=== PATIENT | male | born 1975 | race African-American/Black ===

== ENCOUNTER 2016-12-19 14:18 | Emergency (ER) | payer OTHER, BC ==
[~2016-12-19] VITALS: Ht 180.3 cm; Wt 136.1 kg
[2016-12-19 14:34] VITALS: BP 154/83
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
== END 2016-12-19 15:22 | disposition home or self-care (01) ==
LOC: ER 14:18
DX: S90.02XA Contusion of left ankle, initial encounter (principal); G89.29 Other chronic pain; F17.210 Nicotine dependence, cigarettes, uncomplicated; W22.8XXA Striking against or struck by other objects, initial encounter; Y93.01 Activity, walking, marching and hiking; Y92.481 Parking lot as the place of occurrence of the external cause; Y99.8 Other external cause status
CPT/HCPCS: 73610; 99284

== ENCOUNTER → 2016-12-30 | Outpatient (CLI) | payer BC ==
[2016-12-19 14:34] VITALS: BP 154/83
[~2016-12-30] MED LIST: LOSA25TA4 PO; MELO-150 PO; WARF5TAB PO
[2016-12-30 09:25] LABS: ALBUMIN 3.8 g/dL (3.4-5.0); GFR 99.6; POTASSIUM 3.7 mmol/L (3.5-5.1)
[2016-12-30 09:29] LABS: BASO # 0.1 x10^3/uL (0.0-0.2); BASO % 1 % (0-3); EOS % 5 % (0-3); HEMATOCRIT 41.3 % (39.0-53.0); HEMOGLOBIN 13.3 g/dL (13.0-17.5); LYMPH # 3.2 x10^3/uL (1.0-4.8); LYMPH % 36 % (24-48); MEAN CORPUSCULAR HEMOGLOBIN 24 pg (25-35); MEAN CORPUSCULAR HGB CONC 32 g/dL (31-37); MEAN CORPUSCULAR VOLUME 75 fL (79-100); MONO % 8 % (0-9); NEUT % 51 % (31-73); PLATELET COUNT 160 x10^3/uL (140-400); RED CELL DISTRIBUTION WIDTH 13.9 % (11.5-14.5); WHITE BLOOD COUNT 8.9 x10^3/uL (4.0-11.0)
[2016-12-30 09:36] LABS: INR 1.1 (0.8-1.1); PROTHROMBIN TIME PATIENT 13.2 SEC (11.7-14.0)
--- NOTE | 2016-12-30 12:45 | RAD ---
Indication: Presurgical evaluation, obesity. Technique: Two-view chest radiograph was obtained. No comparison is available. Findings: The lungs are clear. The cardiopulmonary silhouette is within normal limits. There is no pleural effusion. There are minimal degenerative changes in the spine. Impression: No acute thoracic findings.
--- NOTE | 2016-12-30 13:42 | EKG ---
[facility] [address] [place] [address] Test Date: 2016-12-30 Test Time: 11:57:24 Pat Name: JOANA FISH Department: Room: Gender: M Professional Caster: : 1975 Requested By: MADELEINE HEADLEY Order Number: [id number] Reading MD: Birdie Banegas Measurements Intervals Vernon Rate: 82 P: 45 NM: 170 QRS: 45 QRSD: 94 T: 28 QT: 346 QTc: 407 Interpretive Statements SINUS RHYTHM NO SPECIFIC ECG ABNORMALITIES RI6.01 No previous ECG available for comparison Electronically Signed On 01-01-2017 10:56:26 CDT by Birdie Banegas
[2016-12-30 19:44] LABS: BILIRUBIN,URINE SMALL (NEG); GLUCOSE,URINE NEGATIVE (NEG); NITRITE,URINE NEGATIVE (NEG); PH,URINE 6.5; PROTEIN,URINE NEGATIVE (NEG-TRACE)
[2016-12-30 19:58] LABS: BACTERIA,URINE 0 /HPF (0-FEW); SQUAMOUS EPITHELIAL CELL,UR MOD /LPF
== END | disposition home or self-care (01) ==
LOC: SURGPAT 14:33
PROVIDERS: ATTEND Orthopaedic Surgery Sports Medicine
DX: Z01.818 Encounter for other preprocedural examination (principal)
CPT/HCPCS: 36415; 71020; 80048; 81001; 82040; 85027; 85610; 85651; 85730; 87086; 87641; 93005

== ENCOUNTER 2017-01-06 08:12 | Inpatient (IN) | payer BC ==
[2017-01-06] VITALS (10 sets, daily range): BP systolic 145–163; BP diastolic 80–95
[~2017-01-06] VITALS: Ht 177.8 cm; Wt 136.1 kg
[~2017-01-06 08:12] MED LIST changes: +CEFAZOLIN 2GM PREMIX 50 ML IV PRN; +FENTANYL PF 100 MCG/2 ML VIAL. IV PRN; +HYDROCODONE/APAP 7.5/325MG TABLET. PO PRN; +HYDROMORPHONE 2 MG/ML VIAL. IV PRN; +IV RINGERS,LACTATED 1000ML 1,000 ML IV SCH; +LIDOCAINE 1% 1 ML SYRINGE. ID PRN; -LOSA25TA4 PO; -MELO-150 PO; +MELOXICAM 7.5 MG TABLET PO PRN; +MORPHINE SULFATE 5 MG, KETOROLAC TROMETHAMINE 30 MG, ROPIVacaine 0.5% PF 60 ML, EPINEPH... INT ART ONE; +ONDANSETRON PF 4 MG/2 ML VIAL. IV PRN; +PROCHLORPERAZINE 10 MG/2 ML VIAL. IV PRN; +TRANEXAMIC ACID 1,000 MG in IV NS 50ML -- 1ST BAG INJ ONE; +TRANEXAMIC ACID 1,000 MG in IV NS 50ML -- 2ND BAG INJ ONE; -WARF5TAB PO
[2017-01-06] MEDS ORDERED: LIDOCAINE 2% 100 MG/5 ML DISP.SYRIN. ONE (08:31)
[2017-01-06] MEDS ORDERED: FAMOTIDINE 20 MG/2 ML VIAL ONE (08:31)
[2017-01-06] MEDS ORDERED: PROPOFOL 20 ML IV ONE (08:31)
[2017-01-06] MEDS ORDERED: ONDANSETRON PF 4 MG/2 ML VIAL. ONE (08:31)
[2017-01-06] MEDS ORDERED: DEXAMETHASONE SOD PHOS 20 MG/5 ML VIAL. ONE (08:31)
[2017-01-06] MEDS ORDERED: FENTANYL PF 100 MCG/2 ML VIAL. ONE (08:32)
[2017-01-06] MEDS ORDERED: ROCURONIUM 50 MG/5 ML VIAL. ONE ×2 (08:32→08:33)
[2017-01-06] MEDS ORDERED: SUCCINYLCHOLINE 200 MG/10 ML VIAL. ONE (08:33)
[2017-01-06] MEDS ORDERED: WARF5TAB PO (08:40)
[2017-01-06] MEDS ORDERED: MELO-150 PO (08:40)
[2017-01-06] MEDS ORDERED: LOSA25TA4 PO (08:42)
[2017-01-06 09:25] LABS: INR 1.1 (0.8-1.1); PROTHROMBIN TIME PATIENT 13.2 SEC (11.7-14.0)
--- NOTE | 2017-01-06 09:39 | PDOC ---
BRIEF OPERATIVE NOTE Date: Jan 06, 2017 Pre-Op Diagnosis R hip AVN Post-Op Diagnosis same Procedure Performed R BRANDON Surgeon Jas Glass Cleaner Eliel Anesthesiologist [place]ap[place] Anesthesia Type: General Blood Loss per Op Note Complications none MADELEINE HEADLEY II, MD Jan 06, 2017 09:39
[2017-01-06] MEDS ORDERED: FENTANYL PF 100 MCG/2 ML VIAL. IV PRN ×2 (09:45)
[2017-01-06] MEDS ORDERED: OXYCODONE/APAP 5/325 TABLET. PO PRN (09:45)
[2017-01-06] MEDS ORDERED: ACETAMINOPHEN 325 MG TABLET. PO PRN (09:45)
[2017-01-06] MEDS ORDERED: MORPHINE SULFATE 10 MG/ML VIAL. IV PRN (09:45)
[2017-01-06] MEDS ORDERED: MORPHINE SULFATE 4 MG/ML DISP.SYRIN. IV PRN ×2 (09:45)
[2017-01-06] MEDS ORDERED: 0.9 % SODIUM CHLORIDE 10 ML DISP.SYRIN. IV PRN (09:45)
[2017-01-06] MEDS ORDERED: CALCIUM CARBONATE 500 MG TAB.CHEW PO PRN (09:45)
[2017-01-06] MEDS ORDERED: METOCLOPRAMIDE HCL 10 MG/2 ML VIAL. IV PRN (09:45)
[2017-01-06] MEDS ORDERED: DEXTROSE 50% 25 GM / 50ML DISP.SYRIN. IV PRN (09:45)
[2017-01-06] MEDS ORDERED: DIPHENHYDRAMINE 50 MG/ML VIAL IV PRN (09:45)
[2017-01-06] MEDS ORDERED: ZOLPIDEM 5 MG TABLET. PO PRN (09:45)
[2017-01-06] MEDS ORDERED: PROCHLORPERAZINE 10 MG/2 ML VIAL. IV PRN (09:45)
[2017-01-06] MEDS ORDERED: TRAMADOL 50 MG TABLET. PO PRN ×2 (09:45)
[2017-01-06] MEDS ORDERED: MORPHINE SULFATE 2 MG/ML DISP.SYRIN. IV PRN (09:45)
[2017-01-06] MEDS ORDERED: PROCHLORPERAZINE 5 MG TABLET. PO PRN (09:45)
[2017-01-06] MEDS ORDERED: CEFAZOLIN 1GM IVPB FOR OMNI 50 ML IV ONE (11:07)
[2017-01-06] MEDS ORDERED: 0.9 % SODIUM CHLORIDE 50 ML VIAL. IJ ONE (11:08)
[2017-01-06] MEDS ORDERED: DESFLURANE > 120 MINUTES IH ONE (13:32)
[2017-01-06] MEDS ORDERED: NEOSTIGMINE METHYLSULFATE 5 MG/5 ML SYRINGE. ONE (13:33)
[2017-01-06] MEDS ORDERED: KETOROLAC 60 MG/2 ML SYRINGE FOR OR. ONE (13:33)
[2017-01-06] MEDS ORDERED: GLYCOPYRROLATE 1 MG/5 ML VIAL. ONE (13:33)
[2017-01-06] MEDS: FENTANYL PF 100 MCG/2 ML VIAL. IV PRN ×4 (13:37→14:11)
[2017-01-06] MEDS: MORPHINE SULFATE 2 MG/ML DISP.SYRIN. IV PRN ×4 (13:41→14:44)
[2017-01-06] MEDS ORDERED: ACETAMINOPHEN INTRAVENOUS 100 ML IV ONE (14:14)
--- NOTE | 2017-01-06 14:23 | RAD ---
Portable pelvis, 01/06/2017: History: Postop evaluation A right total hip prosthesis is now in place. There are underlying degenerative cysts in the subchondral bone along the superior aspect of the right acetabulum. The left hip joint is fairly well preserved. There is no evidence of a retained surgical instrument, needle or radiopaque sponge on these images.
[2017-01-06] MEDS ORDERED: ACETAMINOPHEN INTRAVENOUS 100 ML IV PRN (14:30)
[2017-01-06] MEDS ORDERED: WARFARIN 7.5 MG TABLET. PO ONE (16:00)
[2017-01-06] MEDS: FERROUS SULFATE 325 MG TABLET PO SCH (17:00)
[2017-01-06] MEDS: CEFAZOLIN SODIUM 3 GM in IV NORMAL SALINE 100ML 100 ML IV SCH ×2 (17:30→22:38)
[2017-01-06] MEDS: LOSARTAN POTASSIUM 25 MG TABLET. PO SCH (19:18)
[2017-01-06] MEDS: IV DEXTROSE 5 %-0.45 % NACL 1,000 ML IV SCH ×2 (19:34→21:03)
[2017-01-06] MEDS: CELECOXIB 200 MG CAPSULE PO SCH (21:01)
[2017-01-06] MEDS: HYDROCODONE/APAP 7.5/325MG TABLET. PO PRN (21:02)
[2017-01-07 02:03] VITALS: BP 140/80
[2017-01-07] MEDS: HYDROCODONE/APAP 7.5/325MG TABLET. PO PRN (02:41)
[2017-01-07 02:46] VITALS: BP 137/72
[2017-01-07] MEDS: CEFAZOLIN SODIUM 3 GM in IV NORMAL SALINE 100ML 100 ML IV SCH (05:06)
[2017-01-07] MEDS: IV DEXTROSE 5 %-0.45 % NACL 1,000 ML IV SCH ×2 (05:34→11:52)
[2017-01-07 05:40] LABS: HEMATOCRIT 34.1 % (39.0-53.0); HEMOGLOBIN 10.8 g/dL (13.0-17.5)
[2017-01-07] MEDS ORDERED: MAGNESIUM HYDROXIDE 2,400 MG/30 ML ORAL.SUSP. PO PRN (06:00)
[2017-01-07 06:11] VITALS: BP 141/77
[2017-01-07 06:13] LABS: INR 1.1 (0.8-1.1); PROTHROMBIN TIME PATIENT 13.7 SEC (11.7-14.0)
--- NOTE | 2017-01-07 06:37 | OP ---
DATE OF SURGERY: 01/06/2017 SURGEON: Gorge Headley MD ACT ENGLISH TUTOR: Karma Julian. PREOPERATIVE DIAGNOSIS: Advanced right hip degenerative joint disease. POSTOPERATIVE DIAGNOSIS: Advanced right hip degenerative joint disease. PROCEDURE PERFORMED: Right total hip arthroplasty. COMPLICATIONS: None. BLOOD LOSS: 200 mL COMPONENTS INSERTED: 1. Mcconnell and Nephew size 4 standard offset Anthology stem. 2. A 40 mm Oxinium femoral head. 3. A +0 modular head sleeve. 4. A 56 mm outer diameter R3 acetabular shell. REASON FOR PROCEDURE: The patient is a very pleasant 41-year-old gentleman who has suffered from right hip and groin pain for many years. This pain has been progressive to the point that it was interfering with his ability to work and ambulate as far as he needs to. Clinical and radiographic workups were consistent with the above diagnosis and after failure of conservative therapies and good initial response to an intra-articular steroid injection, he elected to proceed with surgery. DESCRIPTION OF PROCEDURE: The patient was greeted in the preoperative area by myself. Correct extremity was marked and verified. He was transferred supine to the OR table and had successful induction of general anesthesia. He was then laid in the lateral decubitus position with the right side up and an axillary roll. All down pressure points were padded. He was secured to the bed with our hip positioning system and a seatbelt. We then proceeded to prep and drape the right lower extremity in our usual sterile fashion including an Ioban sandwich. I then palpated, marked our surface anatomy and mansi a line for my posterolateral skin incision and incised the skin in accordance with this. I then used electrocautery to cauterize the bleeders and dissect down to the level of the fascia. I used a Norwood elevator to sweep the subcutaneous tissue aside for later identification and repair of the fascia. I then incised this in line with the skin incision and bluntly split the gluteus mook in line with its fibers. I then excised some bursal tissue, took down the quadratus and piriformis and then tagged the piriformis for later repair. Bleeders were cauterized. I identified the capsule and incised this in a Z-plasty type incision and then tagged superior and inferior portion of this for later repair as well. This allowed me to dislocate the femoral head. I then palpated, marked reproducible landmarks on the greater and lesser trochanter and the center of the femoral head and took my measurements for length and offset. I then performed my neck cut approximately 1 cm proximal to the lesser trochanter and delivered the femoral head and neck from the operative field. I then repositioned the leg and placed my anterior and posterior acetabular retractors and began reaming with a 46 up to a 56 mm, which gave a good fit. I did take down some large osteophytes at the posterior rim at this point as well. After this, I impacted my cup into position referencing the transverse acetabular ligament and the cross bar attachment from my insertion handle. I then ensured that I had fully impacted it and placed a screw into his posterior column. I did this after palpating for his sciatic notch. I then irrigated out the operative field, as I had done prior to impacting the cup, and then placed the polyethylene liner and impacted this into position with the elevation directed posteriorly. I then removed my acetabular retractors and repositioned the proximal femur to deliver the proximal femur into the operative field. I also used a proximal femoral elevator. I then began with the kelinie cutting osteotome to ensure that I had a lateral enough starting position followed by the canal finding reamer and a lateralizing reamer. I then began with the chili pepper and broached up to a size 4, which gave a good fit medially and laterally. After this, I trialed the standard and high offset and 0 and +4 combination and felt that the 0 and standard was the best fit. Therefore, I removed the trial broach and impacted my stem into position and retrialed the +0 and +4 and still felt that the +0 had good range of motion, stability, and leg length. After this, I then washed and dried the Crawford taper region and gently impacted the head and sleeve into position. I then reduced the hip after irrigating out the operative field and cup. I then closed the capsule with simple interrupted #2 Ethibond. The piriformis was reapproximated through drill holes with #2 Ethibond as well. It should be noted that in order to help facilitate with exposure as the hip was tight, I did release 1 cm of his gluteus mook, which I did repair at the end with this [id number] #2 Ethibond. I then injected my periarticular mixture into the hitesh-incisional area. I then slightly abducted his leg and let it rest on a padded Alas while I closed the fascia with a running #2 Quill. The subcutaneous tissue was closed in the deep portion with inverted interrupted 0 followed by inverted interrupted 2-0 for the more superficial layer. Running 4-0 Monocryl in subcuticular fashion was used for the skin. Prior to completion of wound closure, all counts were reported as correct x 2. No complications. At the conclusion of the surgery, the patient was gently transferred supine to the recovery room cart and taken to PACU in stable and extubated condition. Postop plan is to admit him to the [facility] for DVT and antibiotic prophylaxis as well as IV pain medicine and to begin his rehab. GOGRE HEADLEY MD DR: MIKAYLA/emmanuel JOB#: [id number] / [id number] GENIA
--- NOTE | 2017-01-07 08:19 | DISCH ---
DISCHARGE INSTRUCTIONS Condition on Discharge Condition on Discharge: Stable Activity After Discharge Activity Instructions for Disc: Activity as tolerated Bathing Instructions: Shower-keep dressing dry Weight Bearing Status after Di: As tolerated Diet after Discharge Diet after Discharge: Regular Wound Incision Care Wound/Incision Care: Ice to area for comfort, Keep wound/cast CDI, Do not change dressing Contacting the DRJazmin after DC Call your doctor for: Concerns you may have Follow-Up Follow up with: Mika in 2wks Warfarin Follow-Up Warfarin Follow UP: per Pharmacy MADELEINE HEADLEY II, MD Jan 07, 2017 08:19
--- NOTE | 2017-01-07 08:21 | PDOC ---
ORTHO PROGRESS NOTES Subjective c/o ant R knee pain, worse with movement. Hip pain ok. No other complaints Vitals Vital Signs Date Time Temp Pulse Resp B/P Pulse Ox O2 Delivery O2 Flow Rate FiO2 01/07/17 07:58 Room Air 01/07/17 06:11 98.0 65 18 141/77 99 98.0 01/06/17 14:44 2.0 Labs Laboratory Tests Test 01/06/17 08:55 01/07/17 05:29 Prothrombin Time 13.2SEC (11.7-14.0) 13.7SEC (11.7-14.0) Prothromb Time International Ratio 1.1 (0.8-1.1) 1.1 (0.8-1.1) Activated Partial Thromboplast Time 29SEC (24-38) Hemoglobin 10.8g/dL (13.0-17.5) Hematocrit 34.1% (39.0-53.0) Mean Corpuscular Hemoglobin Concent 32g/dL (31-37) Laboratory Tests Test 01/06/17 08:55 01/07/17 05:29 Prothrombin Time 13.2SEC (11.7-14.0) 13.7SEC (11.7-14.0) Prothromb Time International Ratio 1.1 (0.8-1.1) 1.1 (0.8-1.1) Activated Partial Thromboplast Time 29SEC (24-38) Hemoglobin 10.8g/dL (13.0-17.5) Hematocrit 34.1% (39.0-53.0) Mean Corpuscular Hemoglobin Concent 32g/dL (31-37) Notes A and A in chair RLE: dressing dry, wiggles toes, DP 2+, SITLT Assessment and Plan PT/OT likely home tomorrow knee pain prob from manipulating leg during surgery, will observe MADELEINE HEADLEY II, MD Jan 07, 2017 08:21
[2017-01-07] MEDS: FERROUS SULFATE 325 MG TABLET PO SCH ×2 (08:25→17:10)
[2017-01-07] MEDS: SENNOSIDES/DOCUSATE 8.6/50MG TABLET. PO SCH (08:25)
[2017-01-07] MEDS: HYDROCODONE/APAP 10/325 TABLET. PO PRN (08:25)
[2017-01-07] MEDS: CELECOXIB 200 MG CAPSULE PO SCH ×2 (08:26→21:04)
[2017-01-07] MEDS: MULTIVITAMIN with MINERAL TABLET. PO SCH (08:26)
[2017-01-07] MEDS: LOSARTAN POTASSIUM 25 MG TABLET. PO SCH (08:27)
[2017-01-07 08:28] VITALS: BP 151/79
[2017-01-07] MEDS ORDERED: BISACODYL 10 MG SUPP.RECT PR PRN (16:00)
[2017-01-07] MEDS ORDERED: WARFARIN 5 MG TABLET. PO ONE (16:00)
[2017-01-07] MEDS: OXYCODONE/APAP 7.5/325 TABLET. PO PRN ×2 (17:13→21:04)
[2017-01-07 19:01] VITALS: BP 141/83
[2017-01-08] MEDS: IV DEXTROSE 5 %-0.45 % NACL 1,000 ML IV SCH (00:36)
[2017-01-08] MEDS: OXYCODONE/APAP 7.5/325 TABLET. PO PRN ×4 (02:19→15:27)
[2017-01-08] MEDS: HYDROCODONE/APAP 10/325 TABLET. PO PRN (05:27)
[2017-01-08 05:32] VITALS: BP 146/88
[2017-01-08 06:51] LABS: HEMATOCRIT 34.5 % (39.0-53.0); HEMOGLOBIN 11.1 g/dL (13.0-17.5)
[2017-01-08 07:01] LABS: INR 1.2 (0.8-1.1); PROTHROMBIN TIME PATIENT 14.5 SEC (11.7-14.0)
[2017-01-08] MEDS: FERROUS SULFATE 325 MG TABLET PO SCH (08:02)
[2017-01-08] MEDS: SENNOSIDES/DOCUSATE 8.6/50MG TABLET. PO SCH (08:02)
[2017-01-08] MEDS: CELECOXIB 200 MG CAPSULE PO SCH (08:02)
[2017-01-08] MEDS: MULTIVITAMIN with MINERAL TABLET. PO SCH (08:02)
[2017-01-08] MEDS: LOSARTAN POTASSIUM 25 MG TABLET. PO SCH (08:04)
--- NOTE | 2017-01-08 11:38 | PDOC ---
ORTHO PROGRESS NOTES Subjective Knee pain unchanged. Hip doing ok Vitals Vital Signs Date Time Temp Pulse Resp B/P Pulse Ox O2 Delivery O2 Flow Rate FiO2 01/08/17 09:00 100 Room Air 01/08/17 08:04 69 146/88 01/08/17 08:02 20 01/08/17 05:32 97.8 97.8 Labs Laboratory Tests Test 01/07/17 05:29 01/08/17 06:10 Hemoglobin 10.8g/dL (13.0-17.5) 11.1g/dL (13.0-17.5) Hematocrit 34.1% (39.0-53.0) 34.5% (39.0-53.0) Mean Corpuscular Hemoglobin Concent 32g/dL (31-37) 32g/dL (31-37) Prothrombin Time 13.7SEC (11.7-14.0) 14.5SEC (11.7-14.0) Prothromb Time International Ratio 1.1 (0.8-1.1) 1.2 (0.8-1.1) Laboratory Tests Test 01/08/17 06:10 Hemoglobin 11.1g/dL (13.0-17.5) Hematocrit 34.5% (39.0-53.0) Mean Corpuscular Hemoglobin Concent 32g/dL (31-37) Prothrombin Time 14.5SEC (11.7-14.0) Prothromb Time International Ratio 1.2 (0.8-1.1) Notes A and A good ROM at knee, TTP peripatellar remains NVI Assessment and Plan home today MADELEINE HEADLEY II, MD Jan 08, 2017 11:38
[2017-01-08] MEDS ORDERED: WARF6TAB PO (11:46)
[2017-01-08 11:53] VITALS: BP 140/81
[2017-01-08] MEDS ORDERED: WARFARIN 7.5 MG TABLET. PO ONE (13:00)
--- NOTE | 2017-01-08 13:42 | PATHOLOGY ---
PATHOLOGY REPORT * * * * * * * * FINAL DIAGNOSIS: Femoral head, right total hip arthroplasty: - Advanced degenerative arthritis. (JPM:; d/t: 01/08/17) REPORT ELECTRONICALLY SIGNED BY: Anderson Teran M.D. DATE/TIME: 01/08/2017 13:41 * * * * * * * * GROSS PATHOLOGY: Received in formalin labeled "Chinmay Fish, right hip bone and tissue," is a femoral head measuring 6.6 x 6.3 x 6.8 cm in greatest dimensions. The articular surface is light rothman to pink-rothman and granular in appearance with evidence of eburnation and osteophytic lipping. Sectioning the bone reveals light rothman cut surfaces, as well as displaying multiple cystic structures ranging in size from 0.5 to 1.8 cm filled with yellow-rothman mucoid-like material. Maintenance Engineer tissue is submitted in cassette A1, following decalcification. (CAA; 01/07/2017) INITIAL CPT CODE(S): A; 82901, 77807 Professional services performed [place] [facility] [address] Technical services performed by [facility] at [address] [place] [address]. SPECIMEN(S) RECEIVED: A.Right hip bone and tissue CLINICAL HISTORY: Osteoarthritis PATIENT: JOANA FISH /AGE: 1 1975 (Age: 41) PATIENT #: [id number] ALT CASE #: SPECIMEN COLLECTION DATE: 01/06/2017 SPECIMEN RECEIVED DATE: 01/06/2017 [facility] - [address] [place] [address] - PHONE: [phone] * * * END OF REPORT * * *
--- NOTE | 2017-01-10 08:40 | PDOC3 ---
Discharge Summary Visit Information Date of Admission: Jan 06, 2017 Date of Discharge: Jan 08, 2017 Admitting Diagnosis: advanced right hip degenerative joint disease Final Diagnosis Problems Medical Problems: (1) Avascular necrosis of bone of right hip Status: Acute Brief Hospital Course Allergies Allergies Coded Allergies Type Severity Reaction Last Updated Verified No Known Drug Allergies 01/06/17 No Brief Hospital Course Mr. Curry is a 41 old male who presented to my outpatient orthopedic surgery clinic with complaints of severe and progressive pain that failed conservative therapies including injections. We had a discussion of the risks, benefits, alternatives to total hip arthroplasty and he elected to proceed. He tolerated surgery well cover well from anesthesia in the PACU. He was then taken to the joint Center for care and observation. He did receive PT, OT, DVT and antibiotic prophylaxis. He recovered well from surgery and remained hemodynamically stable and afebrile throughout the hospitalization. Pain was controlled on oral pain medicine at the time of discharge. Good progress was made with therapy throughout the hospitalization, and activities of daily living were accomplished by the patient. The incision was clean dry and intact and the operative extremity had normal motor and sensation. Discharge Information Condition at Discharge: Stable Follow Up: Weeks Disposition/Orders: D/C to Home Scheduled Losartan Potassium (Losartan Potassium) 25 MG PO DAILY (Reported) Meloxicam (Meloxicam) 1 TAB PO ONCE (Reported) Warfarin Sodium (Coumadin) 6 MG PO DAILY (Reported) Discontinued Medications Warfarin Sodium (Coumadin) 1 TAB PO ONCE (Reported) Patient Instructions Patient Instructions He will be discharged home. Home health care has been set up. We will get him started on outpatient therapy as soon as we are able. The patient will be on Coumadin for a month. He can weight-bear as tolerated. Worrisome signs and symptoms that should prompt a phone call to my office were discussed. We'll see him back in 2 weeks, sooner should a problem arise. MADELEINE HEADLEY II, MD Jan 10, 2017 08:40
== END 2017-01-08 16:00 | disposition home or self-care (01) | DRG 470 ==
LOC: OPSVCIP 08:12 → 4 SOUTHEST 14:50
PROVIDERS: ADMIT Orthopaedic Surgery Sports Medicine; ATTEND Orthopaedic Surgery Sports Medicine
PROC: 0SR904Z Replacement of Right Hip Joint with Ceramic on Polyethylene Synthetic Substitute, Open Approach (ICD-10-PCS; principal; 2017-01-06 10:15)
DX: M16.7 Other unilateral secondary osteoarthritis of hip (principal); M25.561 Pain in right knee
CPT/HCPCS: 36415; 72170; 85014; 85018; 85610; 85730; 86850; 86900; 86901; 88304; 88311; 99406; C1713; J0131; J0171; J0330; J0690; J1100; J1885; J2270; J2405; J2704; J2710; J2765; J2795; J3010; J3490; J7030; J7120; S0028; 97116; 97150; 97530; 97535